=== PATIENT | male | born 1985 | race Caucasian/White ===

== ENCOUNTER 2019-10-28 16:11 | Emergency (ER) | payer MEDICAID ==
[~2019-10-28] VITALS: Ht 175.3 cm; Wt 78.0 kg
--- NOTE | 2019-10-28 16:40 | NUR ---
PT C/O L UPPER THIGH PAIN OVER LEG, AMBULATORY BUT STS HURTS WE[place] LIFTS LEG. PT STS WENT TO [facility], US NEG, GIVEN FLEXERIL AND DC, PAIN 10/10 UNIMPROVED. TOLD HE HAS TORN MUSCLE, HAPPENED WHEN AWOKE. DENIES TRAUMA. NO DCAPBTLS NOTED.
--- NOTE | 2019-10-28 17:22 | NUR ---
sahm in room for eval. as
[2019-10-28 17:31] VITALS: BP 124/71
--- NOTE | 2019-10-28 17:32 | NUR ---
LABS BY LAB. PIV PLACED, PT AWARE OF NEED FOR UA.
[2019-10-28 17:43] LABS: MEAN CORPUSCULAR HEMOGLOBIN 28.4 pg (27.5-34.5); MEAN CORPUSCULAR HGB CONC 33.9 g/dL (33.2-36.2); MEAN CORPUSCULAR VOLUME 83.7 fL (81-97); MEAN PLATELET VOLUME 8.2 fL (7.4-10.4); PLATELET COUNT 282 x10^3/uL (130-400); RED BLOOD COUNT 5.69 x10^6/uL (4.38-5.82); RED CELL DISTRIBUTION WIDTH 12.1 % (9.4-14.8)
[2019-10-28 17:59] LABS: ALANINE AMINOTRANSFERASE 12 U/L (12-78); ALBUMIN 3.5 g/dL (3.4-5.0); ALKALINE PHOSPHATASE 87 U/L (45-117); ANION GAP 7 mmol/L (5-15); BILIRUBIN,TOTAL 0.9 mg/dL (0.2-1.0); CALCIUM 8.9 mg/dL (8.5-10.1); CHLORIDE 100 mmol/L (98-107); CREATINE KINASE, TOTAL 64 U/L (39-308); CREATININE 0.96 mg/dL (0.7-1.3); TOTAL PROTEIN 7.2 g/dL (6.4-8.2)
[2019-10-28] MEDS ORDERED: SODIUM CHLORIDE 0.9% 1,000ML IVBOLUS ONE (18:00)
[2019-10-28 18:21] LABS: MD YES
[2019-10-28 18:28] LABS: BAND#(MANUAL) 0.09 x10^3/uL; BANDS%(MANUAL) 1 % (0-7); EOS#(MANUAL) 0.19 x10^3/uL (0.0-0.4); EOS% (MANUAL) 2 % (1-7); LYMPH#(MANUAL) 2.88 x10^3/uL (1-3.4); LYMPHS% (MANUAL) 31 % (22-44); MONOS#(MANUAL) 0.37 x10^3/uL (0.3-2.7); MONOS% (MANUAL) 4 % (2-9); SEG#(MANUAL) 5.77 x10^3/uL (1.8-6.8); SEGS% (MANUAL) 62 % (42-75)
[2019-10-28 18:29] LABS: <PLATELET ESTIMATE> ADEQUATE; <PLT MORPHOLOGY> NORMAL PLT MORPH; <RBC MORPHOLOGY> NORMAL
[2019-10-28] MEDS ORDERED: SODIUM CHLORIDE FLUSH 10ML SYR IVF ONE (18:30)
[2019-10-28 18:31] LABS: ACETONE, SERUM Large (80mg/dL) (Negative)
== END 2019-10-28 19:22 | disposition home or self-care (01) ==
LOC: ED 19:15
DX: L03.116 Cellulitis of left lower limb (principal); E11.65 Type 2 diabetes mellitus with hyperglycemia; R00.0 Tachycardia, unspecified; F17.210 Nicotine dependence, cigarettes, uncomplicated
CPT/HCPCS: 36415; 73552; 80053; 82010; 82550; 83036; 85025; 86140; 93005; 96360; 99285; J7030